=== PATIENT | female | born 1970 | race Caucasian/White ===

== ENCOUNTER 2018-01-04 08:47 | Day surgery (SDC) | payer BC ==
[~2018-01-04] VITALS: Ht 160 cm; Wt 70.8 kg
[2018-01-04 10:00] LABS: HCG,QUAL RESULT NEGATIVE (NEGATIVE)
[2018-01-04] MEDS ORDERED: CLINDAMYCIN PHOS 900 MG/ D5W 50 ML PREMIX IV ONE (10:30)
[2018-01-04] MEDS ORDERED: POLYMYXIN 500,000/BACIT.10,000 UNITS in NS IRR 1 L IR ONE (10:45)
[2018-01-04] MEDS ORDERED: LR 1,000 ML IV SCH (12:11)
[2018-01-04] MEDS ORDERED: HYDROmorphone 2 MG/ML VIAL IVP PRN ×2 (12:15)
[2018-01-04] MEDS ORDERED: MEPERIDINE HCL/PF 25 MG/ML DISP.SYRIN IVP PRN (12:15)
[2018-01-04] MEDS ORDERED: HYDROmorphone 1 MG INJ. 1 MG/ML AMPUL IVP PRN (12:15)
[2018-01-04] MEDS ORDERED: OXYCODONE/ACETAMINOPHEN 5-325 TABLET PO PRN (12:45)
[2018-01-04] MEDS ORDERED: HYDROcodone/ACETAMIN 5-325 MG TAB (NORCO/ VICODIN) PO PRN (12:45)
[2018-01-04] MEDS ORDERED: ONDANSETRON HCL 4 MG/2 ML VIAL IVP PRN (12:45)
[2018-01-04 13:53] VITALS: BP_SYST 119
[2018-01-04] MEDS ORDERED: KETOROLAC TROMETHAMINE 30 MG VIAL IVP ONE (15:00)
[2018-01-04] MEDS ORDERED: KETOROLAC TROMETHAMINE 30 MG VIAL ONE (15:03)
== END 2018-01-04 17:45 | disposition home or self-care (01) ==
LOC: SDS 08:47 → SMU 08:48 → SDS 17:45
PROVIDERS: ATTEND Specialist
DX: N39.3 Stress incontinence (female) (male) (principal); N81.10 Cystocele, unspecified; E03.9 Hypothyroidism, unspecified; Z98.890 Other specified postprocedural states; Z79.899 Other long term (current) drug therapy; Z88.0 Allergy status to penicillin; E66.3 Overweight; F32.9 Major depressive disorder, single episode, unspecified
CPT/HCPCS: 57240; 57288; 84703; 88305; C1771; J1885; J3490